=== PATIENT | female | born 1940 | race Hispanic/Latino ===

== ENCOUNTER 2019-02-27 15:00 | Emergency (ER) | payer MEDICARE ==
[2019-02-27 15:10] VITALS: BMI 24.6
[2019-02-27 16:03] LABS: BASO % 1.1 % (0.0-2.0); EOS # 0.1 K/uL (0.0-0.7); EOS % 1.4 % (0.0-4.0); LYMPH # 0.8 K/uL (1.0-4.3); LYMPH % 18.7 % (20.0-40.0); MEAN CELL VOLUME 82.1 fL (81.0-99.0); MEAN CORPUSCULAR HEMOGLOBIN 26.2 pg (27.0-31.0); MEAN CORPUSCULAR HGB CONC 31.9 g/dL (33.0-37.0); MONO # 0.5 K/uL (0.0-0.8); MONO % 10.4 % (0.0-10.0); NEUT % 68.4 % (50.0-75.0); NRBC % 0.1 % (0.0-2.0); RBC 4.25 Mil/uL (3.80-5.20); RED CELL DISTRIBUTION WIDTH 20.2 % (11.5-14.5); WHITE BLOOD COUNT 4.4 K/uL (4.8-10.8)
[2019-02-27 16:09] LABS: HEMOGLOBIN 11.1 g/dL (11.0-16.0)
[2019-02-27 16:15] LABS: ALB/GLOB RATIO 1.6 (1.0-2.1); ALBUMIN 4.5 g/dL (3.5-5.0); ALT/SGPT 16 U/L (9-52); AST/SGOT 18 U/L (14-36); BLOOD UREA NITROGEN 13 mg/dL (7-17); CALCIUM 9.7 mg/dl (8.6-10.4); GFR NON-AFRICAN AMERICAN > 60
[2019-02-27 16:18] LABS: INR 1.1
--- NOTE | 2019-02-27 16:53 | C.PDOC ---
History Of Present Illness 78 year old female, with PMHx of chronic anemia, asthma, arthritis, presents to the ED c/o dizziness described as "lightheadedness" associated with nausea and generalized weakness since 2pm today. Patient is s/p recent blood transfusion at the infusion center at [facility] 2 days ago. Patient denies CP, SOB, palpitations, headache, visual changes, facial droop, slurred speech, extremity weakness, sensory changes, gait changes. Time Seen by Provider: 02/27/19 15:16 Chief Complaint (Nursing): Dizziness/Lightheaded History Per: Patient History/Exam Limitations: no limitations Onset/Duration Of Symptoms: Hrs (2pm) Current Symptoms Are (Timing): Still Present Seizure Or Post-ictal Symptoms: None Fall Associated With With Symptoms: No Severity: Mild Additional History Per: Patient Past Medical History Reviewed: Historical Data, Nursing Documentation, Vital Signs Vital Signs: Last Vital Signs Temp 98.5 F 02/27/19 15:05 Pulse 69 02/27/19 15:05 Resp 18 02/27/19 15:05 BP 142/80 02/27/19 15:05 Pulse Ox 99 02/27/19 15:05 - Medical History PMH: Anemia, Arthritis (MILD), Asthma (CHILDHOOD ASTHMA-NO RECENT EPISODES), Colonic Polyps, Osteoporosis Surgical History: Endoscopy - [facility] Procedures CLOSED ENDOSCOPIC BIOPSY OF LARGE INTESTINE (08/25/14) ESOPHAGOGASTRODUODENOSCOPY [EGD] W/CLOSED BIOPSY (08/25/14) Family History: States: No Known Family Hx - Social History Hx Alcohol Use: No Hx Substance Use: No Review Of Systems Constitutional: Positive for: Weakness (generalized) Eyes: Negative for: Vision Change ENT: Negative for: Other (facial changes) Cardiovascular: Negative for: Chest Pain, Palpitations Respiratory: Negative for: Shortness of Breath Gastrointestinal: Positive for: Nausea. Negative for: Vomiting, Abdominal Pain, Diarrhea Skin: Negative for: Rash Neurological: Positive for: Dizziness. Negative for: Weakness (extremity), Numbness, Incoordination, Change in Speech, Confusion, Seizures, Altered Mental Status, Headache Physical Exam - Physical Exam Appears: Well, Non-toxic, No Acute Distress Skin: Normal Color, Warm, Dry Head: Atraumatic, Normacephalic Eye(s): bilateral: Normal Inspection (no nystagmus), PERRL, EOMI Oral Mucosa: Moist Neck: Normal ROM, No Midline Cervical Tenderness, No Paracervical Tenderness, No Step Off Deformity, Supple Cardiovascular: Rhythm Regular, No Murmur Respiratory: Normal Breath Sounds, No Rales, No Rhonchi, No Wheezing Gastrointestinal/Abdominal: Normal Exam, Bowel Sounds, Soft, No Tenderness Extremity: Normal ROM, No Pedal Edema, No Calf Tenderness Pulses: Left Dorsalis Pedis: Normal, Right Dorsalis Pedis: Normal Neurological/Psych: Oriented x3, Normal Speech, Normal Cognition, Normal Cranial Nerves, Normal Motor, Normal Sensation, No Expressive Aphasia, No Receptive Aphasia, No Dysarthria, No Romberg Gait: Steady ED Course And Treatment - Laboratory Results Result Diagrams: 02/27/19 15:58 02/27/19 15:58 Lab Results: PT 12.0 SECONDS (9.7-12.2) 02/27/19 15:58 INR 1.1 02/27/19 15:58 APTT 41.0 SECONDS (21-34) H 02/27/19 15:58 Total Bilirubin 0.7 mg/dL (0.2-1.3) 02/27/19 15:58 AST 18 U/L (14-36) 02/27/19 15:58 ALT 16 U/L (9-52) 02/27/19 15:58 Alkaline Phosphatase 96 U/L (38-126) 02/27/19 15:58 Total Protein 7.4 g/dL (6.3-8.3) 02/27/19 15:58 Albumin 4.5 g/dL (3.5-5.0) 02/27/19 15:58 Globulin 2.8 gm/dL (2.2-3.9) 02/27/19 15:58 Albumin/Globulin Ratio 1.6 (1.0-2.1) 02/27/19 15:58 ECG: Interpreted By Me, Viewed By Me (sinus bradycardia 58 bpm, normal axis, no acute ST/T wave changes) ECG Interpretation: Abnormal (mild bradycardia ) O2 Sat by Pulse Oximetry: 99 (on RA) Pulse Ox Interpretation: Normal - CT Scan/US CT Head Other Rad Studies (CT/US): Read By Radiologist, Radiology Report Reviewed CT/US Interpretation: Date of service: 02/27/2019. PROCEDURE: CT HEAD WITHOUT CONTRAST. HISTORY: Dizziness. COMPARISON: None available. TECHNIQUE: Axial computed tomography images were obtained through the head/brain without intravenous contrast. Radiation dose: Total exam DLP = 858.01 mGy-cm. This CT exam was performed using one or more of the following dose reduction techniques: Automated exposure control, adjustment of the mA and/or kV according to patient size, and/or use of iterative reconstruction technique. FINDINGS: HEMORRHAGE: No intracranial hemorrhage. BRAIN: There are mild chronic microangiopathic changes. There is no mass, mass effect or abnormal extra-axial fluid collection. There is no territorial infarction. The midline sagittal structures are normal. VENTRICLES: There is mild age-related global parenchymal volume loss and proportionate enlargement of the ventricles and cortical sulci. CALVARIUM: There is no calvarial fracture or extracranial soft tissue swelling. PARANASAL SINUSES: Predominantly clear. MASTOID AIR CELLS: Predominantly clear. OTHER FINDINGS: None. IMPRESSION: No acute intracranial abnormality. Mild chronic microangiopathic changes and mild age- related global parenchymal volume. Progress Note: Blood work, CT head, UA ordered and reviewed. Reevaluation Time: 18:30 Reassessment Condition: Improved (Patient reassessed, is resting comfortably and states she feels better. She is ambulating normally in the ED. Hgb is normal, CT head neg for acute findings. Patient is comfortable being discharged home. She was instructed to follow up with Lizzy White within 1 week. She understands she should return to ED if symptoms worsen.) Disposition Counseled Patient/Family Regarding: Studies Performed, Diagnosis, Need For Followup - Disposition Referrals: Juan Jose White MD [Staff Provider] - Disposition: HOME/ ROUTINE Disposition Time: 18:30 Condition: STABLE Additional Instructions: FOLLOW UP WITH YOUR DOCTOR IN 1-2 DAYS DRINK PLENTY OF FLUIDS RETURN TO EMERGENCY ROOM IF YOUR SYMPTOMS BECOME WORSE SEGUIR CON LUIS MDICO EN 1-2 OTTO BEBER MUCHO LQUIDO VUELVA A LA [facility] DE [facility] SI SHEILA SNTOMAS SE HACEN [place] Forms: [facility] (Amharic), General Discharge Instructions - Clinical Impression Clinical Impression: Lightheaded - Scribe Statement The provider has reviewed the documentation as recorded by the Scribe Whit Garcia All medical record entries made by the Scribe were at my direction and personally dictated by me. I have reviewed the chart and agree that the record accurately reflects my personal performance of the history, physical exam, medical decision making, and the department course for this patient. I have also personally directed, reviewed, and agree with the discharge instructions and disposition.
[2019-02-27 17:03] LABS: URINE BILIRUBIN NEGATIVE (NEGATIVE); URINE BLOOD 1+ (NEGATIVE); URINE CLARITY Clear (Clear); URINE COLOR Straw (YELLOW); URINE GLUCOSE (UA) NORMAL (Normal); URINE LEUKOCYTE ESTERASE NEG Leu/uL (Negative); URINE PROTEIN NEGATIVE (NEGATIVE); URINE UROBILINOGEN NORMAL mg/dL (0.2-1.0)
--- NOTE | 2019-02-27 17:08 | CT ---
Date of service: 02/27/2019 PROCEDURE: CT HEAD WITHOUT CONTRAST. HISTORY: Dizziness COMPARISON: None available. TECHNIQUE: Axial computed tomography images were obtained through the head/brain without intravenous contrast. Radiation dose: Total exam DLP = 858.01 mGy-cm. This CT exam was performed using one or more of the following dose reduction techniques: Automated exposure control, adjustment of the mA and/or kV according to patient size, and/or use of iterative reconstruction technique. FINDINGS: HEMORRHAGE: No intracranial hemorrhage. BRAIN: There are mild chronic microangiopathic changes. There is no mass, mass effect or abnormal extra-axial fluid collection. There is no territorial infarction. The midline sagittal structures are normal. VENTRICLES: There is mild age-related global parenchymal volume loss and proportionate enlargement of the ventricles and cortical sulci. CALVARIUM: There is no calvarial fracture or extracranial soft tissue swelling. PARANASAL SINUSES: Predominantly clear. MASTOID AIR CELLS: Predominantly clear. OTHER FINDINGS: None. IMPRESSION: No acute intracranial abnormality. Mild chronic microangiopathic changes and mild age-related global parenchymal volume.
[2019-02-27 18:35] VITALS: BP 132/78; PULSE 60; RESP 16; TEMP 98
[2019-03-01 04:44] VITALS: O2SAT 99
--- NOTE | 2019-03-03 19:44 | CARD ---
APPROVED REPORT Date of service: 02/27/2019 EKG Measurement Heart [id number] <Conclusion> Sinus bradycardia Otherwise normal ECG
== END 2019-02-27 18:48 | disposition home or self-care (01) ==
LOC: C.ER 15:00
DX: R42 Dizziness and giddiness (principal)

== ENCOUNTER 2019-03-25 06:06 | Day surgery (SDC) | payer MEDICARE | END 2019-03-25 10:36 | disposition home or self-care (01) | LOC: C.ENDO 06:06 | DX: R19.5 Other fecal abnormalities (principal); D50.9 Iron deficiency anemia, unspecified; R12 Heartburn ==